=== PATIENT | female | born 1985 | race Caucasian/White ===

== ENCOUNTER 2017-03-22 04:57 | Inpatient (IN) | payer MEDICARE ==
[~2017-03-22] VITALS: Ht 175.3 cm; Wt 112.0 kg
[2017-03-22 05:17] VITALS: BP 140/72; Ht 175.3 cm; Wt 112.0 kg
[2017-03-22] MEDS ORDERED: PRENATAL COMPLE1 TAB PO (05:17)
[2017-03-22 05:38] LABS: HEMATOCRIT 32.5 % (36.0-48.0); HEMOGLOBIN 10.8 g/dL (12-16); MCH 28.1 pg (26.0-34.0); MCHC 33.2 g/dL (31.0-37.0); MCV 84.6 fL (80.0-100.0); MEAN PLATELET VOLUME 11.9 fL (7.4-10.4); RBC 3.84 10x6/uL (4.00-5.40); RDW 13.8 % (11.5-14.5); WBC 8.1 10x3/uL (4.8-10.8)
[2017-03-22 05:49] LABS: APPEARANCE HAZY (CLEAR); BILIRUBIN NEGATIVE (NEGATIVE); COLOR YELLOW (YELLOW); GLUCOSE NEGATIVE (NEGATIVE); KETONE NEGATIVE (NEGATIVE); LEUKOCYTE ESTERASE NEGATIVE (NEGATIVE); NITRITE NEGATIVE (NEGATIVE); PROTEIN NEGATIVE (NEGATIVE); UROBILINOGEN NORMAL (NORMAL)
[2017-03-22 05:50] LABS: BACTERIA FEW /hpf (NONE SEEN); EPITHELIAL CELLS 0-5 /hpf (0-5); RED CELLS - URINE 0-5 /hpf (0-5); WHITE CELLS - URINE 0-5 /hpf (0-5)
[2017-03-23 07:24] LABS: RAPID PLASMA REAGIN Non Reactive (Non Reactive)
--- NOTE | 2017-03-23 10:00 | NUR ---
PT received back to room from recovery via bed, she is awake and alert. VSS as charted on flowsheet. SCD in place, núñez cath to bedside drain with 100ml noted to collection canister. IV to left hand patent, new bag of pitocin/ns infusing per orders. Bikini incision with medium size bandage in place and clean/dry. Fundus firm at u/1 with moderate lochia, ernie pad changed at this time. Family allowed to room.
[2017-03-23 10:01] VITALS: BP 123/71
--- NOTE | 2017-03-23 10:15 | NUR ---
dilaudid paleology teacher started and pt demonstrates use. Rates pain at incision at 4/10 at this time. Understanding that she is able to have clear liquids only and given large ice water. fundus firm at u/u with moderate lochia noted without clots. side rails up x 2 with phone and call light in reach.
--- NOTE | 2017-03-23 10:45 | NUR ---
fundus firm at u/u with scant bleeding noted, ernie pad changed. Repositioned to right lateral after she demonstrates how to use pillow to brace abdomen and attempt to cough, encouragement provided on her effort. Denies any needs at this time. Spouse at bedside, nursery number provided so she is able to check infant status.
--- NOTE | 2017-03-23 11:18 | NUR ---
fundus firm with massage at u/u, light to moderate bleeding without clots, ernie care given and towels change. Rates pain at 5/10, she has several visitors and is becoming frustrated with level of noise from family. Denies wanting them to leave at this time but will call if an assistance is needed. Call light in reach.
--- NOTE | 2017-03-23 11:51 | NUR ---
Pt bonding with infant alone at this time, rates pain at 3/10 and explains it is more cramping than pain. Fundus firm at u/u, light bleeding with no clots noted with massage, New ice pack to incision site and ernie pad changed. núñez cath to bedside drain with 100ml dark but clear urine noted. Denies nausea and has had no vomiting, call light in reach with side rails up x 2.
--- NOTE | 2017-03-23 12:15 | NUR ---
PT WAS RECEIVED FROM [facility]. BEDSIDE REPORT GIVEN. PT IS LYING IN BED. SHE OFFERS NO COMPLAINTS. SHE STATES HER PAIN IS A 0 AT THIS TIME. SHE IS HOLDING HER BABY. GEN- AWAKE AND ALERT. LUNGS- CLEAR. HEART- RRR. ABD- SOFT. FUNDUS FIRM AT MIDLINE. BS-NEG. LOW TRANSVERSE INCISION WITH PRIMAPORE DRESSING. NEW ICE BAG PLACED. ONOFRE INTACT. 150 CC URINE NOTED. ONOFRE SECURED TO R THIGH WITH FASTENER. EXT- SCD'S INTACT AND OPERATING. PULSES PALPABLE. IV NOTE TO HER LEFT HAND AND IS PATENT. NS WITH PIT INFUSINF AT 125. DILAUDID MEDICAL PSYCHOTHERAPIST INFUSING. INC BRITTANY REVIEWED WITH PT. SHE IS ON CLEAR LIQUIDS AT THIS TIME. BED IS LOW, SIDE RAILS UP X 2 AND CALL LIGHT IN REACH.
--- NOTE | 2017-03-23 13:20 | NUR ---
PT IS RESTING IN BED, STILL HOLDING HER BABY. SHE OFFERS NO COMPLAINTS. BED IS LOW, SIDE RAILS UP X 2 AND CALL LIGHT IN REACH.
--- NOTE | 2017-03-23 14:30 | NUR ---
PT WAS CLEANED UP. ERNESTO CARE DONE. LINENS AND PADS CHANGED. PT STATES THAT SHE FEELS BETTER NOW.
[2017-03-23 14:31] LABS: BASOPHILS 0.1 % (0-2); EOSINOPHILS 0.1 % (0-7); HEMATOCRIT 29.8 % (36.0-48.0); HEMOGLOBIN 9.8 g/dL (12-16); IMMATURE GRANULOCYTES 0.3 % (0-5); LYMPHOCYTES 6.9 % (15-50); MCH 27.8 pg (26.0-34.0); MCHC 32.9 g/dL (31.0-37.0); MCV 84.7 fL (80.0-100.0); MEAN PLATELET VOLUME 12.2 fL (7.4-10.4); MONOCYTES 5.7 % (2-11); NEUTROPHILS 86.9 % (40-80); PLATELET COUNT 160 10x3/uL (130-400); RBC 3.52 10x6/uL (4.00-5.40); RDW 13.6 % (11.5-14.5)
--- NOTE | 2017-03-23 14:45 | NUR ---
INCISION CLEAN AND DRY PRIMAPORE DRESSING INTACT. NE ICE PACK GIVEN.
--- NOTE | 2017-03-23 18:24 | NUR ---
PT IS SITTING UP IN BED. HOLDING BABY. SHE ATE HER CLEAR LIQUID DIET AND TOLERATED WELL HER IV IS PATENT L HAND WITH NS WITH PIT AT 125CC/HR. DILAUDID PROMOTIONS ASSISTANT SALES MARKETING. 8ML'S USED SINCE INITIATED THIS AM. ONOFRE INTACT. SCD'S OFF AT THIS TIME DUE TO PT REQUEST. PRIMAPORE DRESSING NOTED LOW TRANSVERSE INCISION. SMALL AREA OF SOME DRIED BLOOD BUT NO MORE NOTED. BED IS LOW, SIDE RAIOLS UP X 2 AND CALL LIGHT IN REACH.
[2017-03-23 19:24] VITALS: BP 136/83
--- NOTE | 2017-03-23 19:30 | NUR ---
TO ROOM FOR ASSESSMENT AND VS. PT SITTING UP IN BED HOLDING NB IN ARMS. AWAKE AND ALERT. REPORTS CRAMPING. WILL ADMINISTER PRN PAIN MED. SEE EMAR. FUNDUS FIRM AND MIDLINE AT UMBILLICUS. VAG BLEEDING SCANT. ERNESTO PAD CHANGED. ONOFRE CATH IN PLACE AND DRAINING BELOW LEVEL OF BLADDER. IV TO L HAND INFUSING WITH NO S/S INFILTRATION. HAS SCD IN ROOM BUT REFUSES TO KEEP ON BLE. IS REPOSITIONING SELF AND MOVING BLE WITHOUT DIFFICULTY. ASKING TO BE ALLOWED TO AMBULATE AT 12 HOURS POST OP IF OK WITH .
--- NOTE | 2017-03-23 20:30 | NUR ---
DR. PEREZ NOTIFIED OF PTS REQUEST TO DC ONOFRE AND START AMBULATING. NEW ORDERS RCVD.
--- NOTE | 2017-03-23 20:39 | NUR ---
ONOFRE CATH DC'D WITH TIP INTACT. PT TOLERATED WELL. EMPTIED 100 ML URINE FROM ONOFRE BAG. IV SALINE LOCKED. DISCUSSED NEW PAIN MANAGMENT OPTIONS WITH PT. PT VERBALIZES UNDERSTANDING TO ALL. S/O IN ROOM. C/L IN REACH. BED LOW. SR UPX2. WILL CALL WHEN FEELS URGE TO VOID FOR ASSISTANCE TO BATHROOM.
--- NOTE | 2017-03-23 21:47 | NUR ---
Pt requests prn pain med. See emar for medical affairs director. Also reports urge to void.
--- NOTE | 2017-03-23 21:48 | NUR ---
Pt assisted up to bathroom with steady gait. Voided 200 ml blood tinged urine without difficulty. Ernie care performed. Mesh panties and ernie pads given/explained. Pt ambualated back to bed. Underpads changed prior to pt getting into bed.
--- NOTE | 2017-03-23 23:48 | NUR ---
Pt resting with eyes closed. Denies any needs. C/L in reach. Bed low. SR upx2.
[2017-03-24 01:42] VITALS: BP 121/58
--- NOTE | 2017-03-24 01:42 | NUR ---
Pt resting with eyes closed. VS obtained. PRN pain med administered. No other needs voiced. C/L in reach. Bed low. SR upx2.
--- NOTE | 2017-03-24 03:30 | NUR ---
Pt reports she has been up to bathroom with assistance of s/o 2 times and voided without difficulty. Vag bleeding scant. Denies clots. Denies pain. C/L in reach. Bed low. SR upx2.
--- NOTE | 2017-03-24 05:13 | NUR ---
Pt reports she is going to get up to shower and s/o is going to help her. Towels provided. IV to L hand dc'd with tip intact. Bandage to site. Vag bleeding remains scant with no clots. Voiding without difficulty. Denies any dizziness. Instructed to call for assistance while in shower if needed. Pt verbalizes understanding. No other needs voiced.
[2017-03-24 05:51] LABS: BASOPHILS 0.1 % (0-2); EOSINOPHILS 0.6 % (0-7); HEMATOCRIT 29.2 % (36.0-48.0); HEMOGLOBIN 9.6 g/dL (12-16); IMMATURE GRANULOCYTES 0.2 % (0-5); LYMPHOCYTES 13.3 % (15-50); MCH 28.1 pg (26.0-34.0); MCHC 32.9 g/dL (31.0-37.0); MCV 85.4 fL (80.0-100.0); MEAN PLATELET VOLUME 12.2 fL (7.4-10.4); MONOCYTES 7.4 % (2-11); NEUTROPHILS 78.4 % (40-80); PLATELET COUNT 137 10x3/uL (130-400); RBC 3.42 10x6/uL (4.00-5.40)
--- NOTE | 2017-03-24 05:54 | NUR ---
Pt in shower.
[2017-03-24 06:01] LABS: WBC 10.8 10x3/uL (4.8-10.8)
--- NOTE | 2017-03-24 06:17 | NUR ---
PRN MED GIVEN REQUESTED. SEE EMAR.
[2017-03-24 06:20] VITALS: BP 119/67
[2017-03-24 08:00] VITALS: BP 151/74
--- NOTE | 2017-03-24 08:00 | NUR ---
THIS RN TO BEDSIDE FOR SHIFT ASSESSMENT. PT CURRENTLY SITTING UP ON SIDE OF BED W/INFANT UP IN ARMS. PAIN AND NEEDS ASSESSED. PT REPORTS INCISION PAIN THAT INCREASES WITH MOVEMENT. RATES 3-4/10. BREATH SOUNDS CL/=, ABD SOFT, NON DISTENDED. FUNDUS FIRM,U/U, MIDPOSITION. PT REPORTS SMALL LOCHIA. REPORTS ABLE TO VOID W/OUT DIFFICULTY. DENIES BM SINCE DELIVERY. DENIES PASSING FLATUS BUT REPORTS BEING ABLE TO BURP. PEDAL PULSES PRESENT X 2. MILD, NON PITTING EDEMA NOTED TO LOWER EXTREMITIES BILATERALLY. POC DISCUSSED W/PT. PT IS AGREEABLE.
--- NOTE | 2017-03-24 09:00 | NUR ---
ROUNDS MADE. TDAP INFO SHEET PROVIDED. PT ENCOURAGED TO RECEIVE IMMUNIZATION. PT TO REVIEW HANDOUT. PT DENIES NEEDS AT PRESENT. REPORTS ATE AND TOLERATED WELL BREAKFAST TRAY SERVED.
--- NOTE | 2017-03-24 09:30 | NUR ---
TO PT'S BEDSIDE TO HEAR HER DECISION ON RECEIVING THE TDAP. PT DECLINES TDAP AT THIS TIME. REPORTS INCREASED ABD CRAMPING/PAIN. MOTRIN OFFERED. PT ACCEPTS. SEE EMAR FOR ADMIN. NO FURTHER NEEDS VOICED. PT CURRENTLY LYING IN BED W/ UP IN ARMS.
[2017-03-24 09:36] VITALS: BP 116/55
--- NOTE | 2017-03-24 10:45 | NUR ---
ROUNDS MADE. PT REQUESTING NORCO AT THIS TIME FOR INCREASED PAIN AFTER AMBULATING TO BR. FRESH ICE WATER SERVED. NORCO 10/325MG ONE TAB GIVEN.
--- NOTE | 2017-03-24 11:15 | NUR ---
THIS RN TO BEDSIDE FOR DISCHARGE TEACHING. DI FOR PP CARE OF ;HOW TO FEED ;PP DEPRESSION;COMMUNITY RESOURCES; 1 WEEK FOLLOW SCHEDULED W/DR PEREZ FOR STAPLE REMOVAL;PRESCRIPTIONS FOR MOTRIN 600MG AND NORCO 10/325MG W/INSTRUCTIONS. PT STILL REFUSES TDAP AT THIS TIME. PT VERBALIZES UNDERSTANDING. DENIES QUESTIONS AT THIS TIME. PT CURRENTLY SITTING UP IN BED W/INFANT UP IN ARMS. DENIES NEEDS AT PRESENT. REPORTS PAIN "IS OK" AT PRESENT. LUNCH TRAY SERVED. FAMILY TO ROOM.
--- NOTE | 2017-03-24 12:30 | NUR ---
ROUNDS MADE. PT SITTING UP IN BED EATING LUNCH. VISITORS AT BEDSIDE. DENIES NEEDS AT PRESENT.
--- NOTE | 2017-03-24 13:15 | NUR ---
ROUNDS MADE. PT FOUND TO BE STANDING IN ROOM HOLDING . PT UPSET. REPORTS SHE WAS TOLD BY ANOTHER NURSE THAT SOMEONE( A VOLUNTEER) WOULD BE TO WHEEL HER OUT. APOLOGIES MADE PER THIS RN. W/C BROUGHT TO PT'S ROOM IMMEDIATELY. PT PLACES IN CAR SEAT APPROPRIATELY. PT DISCHARGED HOME. TRANSFERED VIA W/C WITH OFF UNIT TO AWAITING CAR TO BE DRIVEN HOME BY HER SISTER.
== END 2017-03-24 13:30 | disposition home or self-care (01) | DRG 766 ==
LOC: D.LD 04:57
PROVIDERS: ADMIT Obstetrics & Gynecology
PROC: 3E033VJ Introduction of Other Hormone into Peripheral Vein, Percutaneous Approach (ICD-10-PCS; 2017-03-22)
PROC: 10D00Z1 Extraction of Products of Conception, Low, Open Approach (ICD-10-PCS; principal; 2017-03-23)
DX: O99.824 Streptococcus B carrier state complicating childbirth (principal); Z3A.40 40 weeks gestation of pregnancy; Z37.0 Single live birth